=== PATIENT | male | born 1950 | race Caucasian/White ===

== ENCOUNTER → 2016-08-17 | Outpatient (CLI) | payer MEDICARE ==
[2016-08-17 10:45] LABS: Non-African American GFR(MDRD) >60 (>60 ml/min/1.73 sqM)
--- NOTE | 2016-08-17 13:11 | MR ---
MR angiogram of the neck without and with contrast, MR angiogram of the brain without contrast HISTORY: TIA, double vision and dizziness [id number] imaging through the [place], three-dimensional post processing performed Multiplanar multisequence and postcontrast images obtained through the neck following 20 cc MultiHanc e IV, three-dimensional reconstructions were performed Neck MRA: Vertebral arteries are patent and codominant. Transverse aorta is patent, left and right co mmon carotid arteries, innominate artery, subclavian arteries, internal and external carotid arteries are patent, there is no significant stenosis. MRA BRAIN: Anterior and posterior circulation are patent. Persistent origin of the left posteri or cerebral artery is noted. No evident aneurysm or vascular malformation. Incidental note made of so ft tissue within the left maxillary sinus, findings may represent mucus retention cyst. IMPRESSION: No significant abnormality to account for patient's symptoms.
== END ==
LOC: RADMRIMAIN 10:01
PROVIDERS: ATTEND Psychiatry & Neurology Neurology
DX: G45.9 Transient cerebral ischemic attack, unspecified (principal); R42 Dizziness and giddiness; R13.19 Other dysphagia; H53.9 Unspecified visual disturbance
CPT/HCPCS: 82565; 70544; 70549; A9577

== ENCOUNTER → 2016-08-18 | Outpatient (CLI) | payer MEDICARE ==
--- NOTE | 2016-08-18 21:59 | PN ---
DATE OF SERVICE: 08/18/2016 66-year-old gentleman who has been followed in the sleep center for treatment of obstructive sleep apnea/hypopnea syndrome. Patient continued to use his equipment every night. No snoring with the machine. [place] Sleepiness Scale is in normal 7. I checked patient's CPAP unit. Usage is 100% of the time more than 4 hours. Apnea-hypopnea index reading for last 7 days 1.9, for the last 30 days, average 2.5, which is normal range. CPAP pressure is 8 cm of water. Patient had episodes of atrial fibrillation last year, on more blood thinner therapy than before. MEDICATIONS: 1. Eliquis. 2. Simvastatin. 3. Sotalol. 4. Levothyroxine. 5. Claritin. During physical exam, the patient in no distress. VITAL SIGNS: BP 95/65, HR 62, RR 16. Height 5 feet 11 inches. Weight 202. BMI 28.1. Patient increased his weight 4 pounds since previous titration at the second part of 2014. HEENT: PERRLA, EOMI oropharynx low position of soft palate. PHYSICAL EXAMINATION: Neck: Supple. No JVD. Thyroid is not palpable. LUNGS: Clear to percussion and to auscultation. Good air exchange. No wheezing or rhonchi. HEART: Systolic murmur on aorta. ABDOMEN: Soft and nontender. Bowel sounds are present. No organomegaly appreciated. EXTREMITIES: No clubbing or cyanosis. EMERGENCY DEPARTMENT PHYSICIAN: Awake, alert, and oriented x3. Cranial nerves 2 to 7 intact. There is no fasciculation or atrophy noted. No focal deficits observed. IMPRESSION: 1. Obstructive sleep apnea/hypopnea syndrome on control with CPAP. Patient demonstrated 100% compliance with treatment benefiting from treatment. 2. History of some PLMS. 3. History of paroxysmal atrial fibrillation. 4. Bicuspid aortic valve. 5. Hypothyroidism. 6. Hyperlipidemia. 7. Status post tonsillectomy. PLAN: 1. Continue treatment with CPAP at the pressure 8 cm of water. 2. Losing weight. 3. Sleep hygiene with regular time in bed for at least 8 hours. 4. No driving if feeling any sleepiness. 5. Prescription for all necessary CPAP supplies, including tube, mask and filters. Thank you very much for allowing me to participate in the management of your patient. Sincerely, Toby Bowie MD, PhD, FAASM. Diplomat of [employer] Board of [employer] Medicine, Sleep Medicine Board by [employer] Board [employer] Specialities Chinese Board of Internal Medicine Typecasting Machine Operator of [facility] [place]
== END | disposition home or self-care (01) ==
LOC: SLEEP 16:04
PROVIDERS: ATTEND Internal Medicine
DX: G47.33 Obstructive sleep apnea (adult) (pediatric) (principal); Z87.898 Personal history of other specified conditions; I48.0 Paroxysmal atrial fibrillation; Q23.1 Congenital insufficiency of aortic valve; E03.9 Hypothyroidism, unspecified; E78.5 Hyperlipidemia, unspecified; Z98.890 Other specified postprocedural states; Z79.01 Long term (current) use of anticoagulants; Z79.899 Other long term (current) drug therapy

== ENCOUNTER → 2016-08-24 | Outpatient (CLI) | payer MEDICARE ==
--- NOTE | 2016-08-28 21:19 | ENG ---
DATE OF SERVICE: VIDEO ELECTRONYSTAGMOGRAPHIC REPORT VNG INDICATIONS: A 66-year-old male with dizziness starting 1-1/2 years ago, gradual onset, improving, but still occurring on average of twice a week lasting for a few seconds to a few minutes. Dizziness can be precipitated by turning the head left or right, bending over or and other movements of the head. VNG FINDINGS: SACCADES: Saccade shows intact peak velocities, accuracies, and latencies. GAZE TEST: Gaze with fixation shows no nystagmus in any of the directions of gaze including centrally with vision denied. SINUSOIDAL TRACKING: Tracking shows smooth tracking at faster and slower speeds. No break-ups. OKN TEST: Opticokinetic nystagmus shows no significant asymmetry at faster or slower speeds either direction. GIA-HALLPIKE TEST: Gia-Hallpike maneuvers are negative bilaterally. POSITION TEST: Static position testing with eyes opened and vision denied in 6 different positions shows no nystagmus. CALORIC TEST: Caloric testing shows 9% unilateral right caloric weakness, which is within normal limits. CONCLUSIONS: Unremarkable VNG study. MTDD
== END | disposition home or self-care (01) ==
LOC: NEUROMAIN 08:38
PROVIDERS: ATTEND Psychiatry & Neurology Neurology
DX: R42 Dizziness and giddiness (principal)
CPT/HCPCS: 92537; 92540

== ENCOUNTER → 2017-09-07 | Outpatient (CLI) | payer MEDICARE ==
--- NOTE | 2017-09-07 15:03 | SFUN ---
SLEEP CENTER FOLLOW UP NOTE DATE OF SERVICE: 09/07/2017 A 67-year-old gentleman who has been followed in the Sleep Center for treatment of obstructive sleep apnea-hypopnea syndrome. Patient continued to use his CPAP equipment every night. No snoring with CPAP. Patient is about the same weight as 1 year ago. [place] Sleepiness Scale today is 6. Patient had an episode of atrial fibrillation which has resolved by itself. I checked CPAP unit. Usage is 29 nights for more than 4 hours per month, average hours 8 hours and 12 minutes. No leak at 20%. Apnea-hypopnea index 3.1 for the last month. CURRENT MEDICATIONS: Eliquis, simvastatin, sotalol, levothyroxine, Claritin. PHYSICAL EXAM: Patient in no distress. BP 109/66, HR 60, RR 16, height 5, 11, weight 204, BMI 28.4, temp is 97.7, oxygen saturation at room air 97%. OROPHARYNX: Low position of soft palate. HEART: S1, S2, regular. Soft systolic murmur. ABDOMEN: Slightly obese. Neck Supple, no JVD. Thyroid is not palpable. LUNGS Clear to percussion and to auscultation. Good air exchange. No wheezing or rhonchi. EXTREMITIES No clubbing or cyanosis. CHIN STRAP SEWER Awake, alert, and oriented X3. Cranial nerves 2 to 7 intact. There is no fasciculation or atrophy. noted. No focal deficits observed. IMPRESSION: 1. Obstructive sleep apnea-hypopnea syndrome. Patient demonstrated practically 100% compliance with treatment, benefitting from treatment. 2. History of episodes of paroxysmal atrial fibrillation. 3. History of bicuspid aortic valve. 4. Hypothyroidism. 5. Hyperlipidemia. 6. Status post tonsillectomy. PLAN: 1. Continue treatment with CPAP every night for the whole night. 2. Watching weight. 3. Sleep hygiene with regular time bed for at least 8 hours. 4. No driving if feeling sleepiness. 5. Prescription for all necessary CPAP supplies, including mask, tube, filters on regular basis. Thank you very much for allowing me to participate in the management of your patient. Sincerely, Toby Bowie MD, PhD, FAASM Diplomat of [employer] Specialties [employer] Board of Internal Medicine Senior Publications Specialist of [facility] [place] MMODL / SALVADORN: [id number] /
== END | disposition home or self-care (01) ==
LOC: SLEEP 13:55
PROVIDERS: ATTEND Internal Medicine
DX: G47.33 Obstructive sleep apnea (adult) (pediatric) (principal); I48.0 Paroxysmal atrial fibrillation; E03.9 Hypothyroidism, unspecified; E78.5 Hyperlipidemia, unspecified; Z99.89 Dependence on other enabling machines and devices; Z90.89 Acquired absence of other organs; Z79.01 Long term (current) use of anticoagulants; Z79.899 Other long term (current) drug therapy

== ENCOUNTER → 2018-07-05 | Outpatient (CLI) | payer MEDICARE ==
--- NOTE | 2018-07-05 15:03 | SFUN ---
SLEEP CENTER FOLLOW UP NOTE DATE OF SERVICE: 07/05/2018: A 67-year-old gentleman who has been followed in the Sleep Center for treatment of obstructive sleep apnea-hypopnea syndrome. Patient continued to use his CPAP equipment every night for the whole night, but presently his machine started to stop working at night. I checked CPAP unit, CPAP pressure at 8 cm of water. His usage is 100% of the time more than 4 hours. Average usage 8.06 hours. Apnea-hypopnea index 2.6, which is in normal range. [place] Sleepiness Scale today is 8. MEDICATIONS: Eliquis, simvastatin, levothyroxine, Claritin, metoprolol. PHYSICAL EXAM: Patient in no distress. BP 107/73, HR 70, RR 18, height 5 foot 11 inches, weight 119.2 pounds. Body mass index 26.6, temperature 98.0, oxygen saturation at room air 97%. OROPHARYNX: Low position of soft palate. HEART: S1, S2 regular. Soft systolic murmur. Neck Supple, no JVD. Thyroid is not palpable. LUNGS Clear to percussion and to auscultation. Good air exchange. No wheezing or rhonchi. ABDOMEN Soft and nontender. Bowel sounds are present. No organomegaly appreciated. EXTREMITIES No clubbing or cyanosis. SOCIAL SERVICES COUNSELOR Awake, alert, and oriented X3. Cranial nerves 2 to 7 intact. There is no fasciculation or atrophy. noted. No focal deficits observed. IMPRESSION: 1. Obstructive sleep apnea-hypopnea syndrome, patient demonstrated 100% compliance with treatment, benefitting from treatment. Presently, has problem with his CPAP equipment, CPAP machine stopped working at night. 2. History of paroxysmal atrial fibrillation. 3. History of bicuspid aortic valve. 4. Hypothyroidism. 5. Hyperlipidemia. 6. Status post tonsillectomy. PLAN: 1. Prescriptions for new CPAP unit. 2. Sleep hygiene with regular time in bed for at least 8 hours. 3. Patient will continue to use CPAP equipment every night for the whole night. 4. No driving if feeling sleepiness. Thank you very much for allowing me to participate in the management of your patient. Sincerely, Toby Bowie MD, PhD, FAASM Diplomat of [place] [employer] Specialties [place] Board of Internal Medicine Rug Cleaning Supervisor of [facility] [place] MMODL / IJN: [id number] /
== END | disposition home or self-care (01) ==
LOC: SLEEP 13:58
PROVIDERS: ATTEND Internal Medicine
DX: G47.33 Obstructive sleep apnea (adult) (pediatric) (principal); I48.91 Unspecified atrial fibrillation; E03.9 Hypothyroidism, unspecified; E78.5 Hyperlipidemia, unspecified; Z99.89 Dependence on other enabling machines and devices; Z79.01 Long term (current) use of anticoagulants; Z79.899 Other long term (current) drug therapy; Z90.89 Acquired absence of other organs; Z86.79 Personal history of other diseases of the circulatory system

== ENCOUNTER → 2018-09-06 | Outpatient (CLI) | payer MEDICARE ==
--- NOTE | 2018-09-06 12:37 | SFUN ---
SLEEP CENTER FOLLOW UP NOTE DATE OF SERVICE: 09/06/2018 A 68-year-old gentleman who has been followed in the Sleep Center for treatment of obstructive sleep apnea-hypopnea syndrome. Recently he received new CPAP unit and successfully starting to use it. No problem with the machine, mask or humidification. Patient is using equipment every night for the whole night. [place] Sleepiness Scale is 8. I checked CPAP unit. CPAP pressure 8 cm of water. Usage is 30/30 nights more than 4 hours. Average usage 8.4 hours. Leak 40 L/minute which is acceptable. Apnea- hypopnea index only 0.8, which is normal. MEDICATIONS: Eliquis, simvastatin, Claritin, levothyroxine, metoprolol. PHYSICAL EXAM: Patient in no distress. BP 108-61, HR 54, RR 16, weight of 195, temp 98.0, O2 saturation at room air 97%. OROPHARYNX: Low position of soft palate. HEART: S1, S2, regular. Soft systolic murmur. Neck Supple, no JVD. Thyroid is not palpable. LUNGS Clear to percussion and to auscultation. Good air exchange. No wheezing or rhonchi. ABDOMEN Soft and nontender. Bowel sounds are present. No organomegaly appreciated. EXTREMITIES No clubbing or cyanosis. STICK PULLER Awake, alert, and oriented X3. Cranial nerves 2 to 7 intact. There is no fasciculation or atrophy. noted. No focal deficits observed. IMPRESSION: 1. Obstructive sleep apnea-hypopnea syndrome. Patient demonstrated 100% compliance with CPAP therapy or new CPAP unit, normal aspiration on CPAP, benefitting from treatment. 2. History of bicuspid aortic valve. S/p aortic valve replacement. 3. History of paroxysmal atrial fibrillation. 4. Hypothyroidism. 5. Hyperlipidemia. 6. Status post tonsillectomy. PLAN: 1. Patient will continue to use CPAP equipment every night for the whole night. 2. Will maintain all necessary prescriptions for CPAP supplies including mask, tube, filters. 3. Watching weight. 4. Precautions related to driving. No driving if feeling sleepiness. 5. Followup visit in 1 year or earlier if patient has any problems. Thank you very much for allowing me to participate in the management of your patient. Sincerely, Toby Bowie MD, PhD, FAASM Diplomat of [employer] Board of Medical Specialties Chinese Board of Internal Medicine Supervisor Mails of [facility] [place] MAREK / KAYLENE: [id number] / LEOBARDO
== END ==
LOC: SLEEP 11:25
PROVIDERS: ATTEND Internal Medicine
DX: G47.33 Obstructive sleep apnea (adult) (pediatric) (principal); E03.9 Hypothyroidism, unspecified; E78.5 Hyperlipidemia, unspecified; Z90.89 Acquired absence of other organs; Z99.89 Dependence on other enabling machines and devices; Z95.4 Presence of other heart-valve replacement; Z86.79 Personal history of other diseases of the circulatory system

== ENCOUNTER → 2021-06-02 | Outpatient (CLI) | payer MEDICARE ==
--- NOTE | 2021-06-02 20:56 | SFUN ---
SLEEP CENTER FOLLOW UP NOTE DATE OF SERVICE: 06/02/2021 70-year-old gentleman has been followed in Sleep Center for treatment of obstructive sleep apnea-hypopnea syndrome. Patient continued to use his CPAP equipment every night for the whole night. No snoring with the machine. I saw him last time about 2 years ago. [place] Sleepiness Scale today is 7. I checked the CPAP unit. Pressure is 8 cm of water. Usage is 29/30 nights for more than 4 hours, average 8 hours per night. Leak is 13 L/minute which is acceptable. Apnea-hypopnea index is 0.6 which is normal. Patient using the AirFit P10 medium size nasal pillow mask. MEDICATIONS: Eliquis 5 mg twice a day, simvastatin 20 mg once a day, metoprolol 25 mg twice a day, levothyroxine 50 mcg once a day. PHYSICAL EXAMINATION: GENERAL: Patient in no distress. BP 107/70, HR 66, RR 18, height 5 feet 11 inches and one quarter, weight 195.0 body mass index 26.9, temperature 97.1, oxygen saturation at room air 97%. Oropharynx: Low position of soft palate. NECK: Supple, no JVD. Thyroid is not palpable. LUNGS: Clear to percussion and to auscultation. Good air exchange. No wheezing or rhonchi. HEART: Irregular heartbeats. ABDOMEN: Soft and nontender. Bowel sounds are present. No organomegaly appreciated. EXTREMITIES: No clubbing or cyanosis. SPEECH AND LANGUAGE CLINICIAN: Awake, alert, and oriented X3. Cranial nerves 2 to 7 intact. There is no fasciculation or atrophy. noted. No focal deficits observed. IMPRESSION: 1. Obstructive sleep apnea-hypopnea syndrome. Patient demonstrated great compliance with treatment. Normal respiration on CPAP. 2. Recent blood in the urine, found to have a cyst in right kidney under evaluation. 3. History of bicuspid aortic valve status post aortic valve replacement. 4. Atrial fibrillation. 5. Hypothyroidism. 6. Status post fall. 7. Hypothyroidism. 8. Hyperlipidemia. 9. Status post tonsillectomy. PLAN: 1. Prescription for all necessary CPAP supplies including nasal pillow, mask, tube, filters. 2. Patient will continue to use PAP equipment every night for the whole night. 3. Sleep hygiene with regular time in bed for at least 7-1/2 to 8 hours. 4. Precautions related to driving. No driving if feeling sleepiness. 5. Watching weight. 6. Follow-up visit in 6 months or earlier if patient has any problems. Thank you very much for allowing me to participate in management of your patient. Sincerely, Toby Bowie MD, PhD, FAASM Diplomat of [place] [employer] Specialties Sleep Medicine Board of [place] Board of Internal Medicine Philosophy Faculty of [facility] [place] MMODL / SALVADORN: [phone] /
== END ==
LOC: SLEEP 11:31
PROVIDERS: ATTEND Internal Medicine
DX: G47.33 Obstructive sleep apnea (adult) (pediatric) (principal); N28.1 Cyst of kidney, acquired; I48.91 Unspecified atrial fibrillation; E03.9 Hypothyroidism, unspecified; E78.5 Hyperlipidemia, unspecified; Z90.89 Acquired absence of other organs; Z95.2 Presence of prosthetic heart valve; Z86.79 Personal history of other diseases of the circulatory system; Z91.81 History of falling; Z79.01 Long term (current) use of anticoagulants; Z79.890 Hormone replacement therapy; Z79.899 Other long term (current) drug therapy

== ENCOUNTER → 2022-02-09 | Outpatient (CLI) | payer MEDICARE ==
--- NOTE | 2022-02-09 14:27 | P.PN ---
Subjective DATE: 02/09/2022 FOLLOW UP VISIT. Patient with obstructive sleep apnea hypopnea syndrome return to sleep center for follow-up visit. Information from previous visit have been reviewed. Patient is using PAP equipment every night for the whole night, getting PAP supplies in time. The patient does not have significant problems with the mask, PAP unit and humidification. [place] sleepiness scale is 6. I checked PAP unit. Air filter is in good shape PAP unit pressure 8 cm H2O. Usage is 100 % for more then 4 hours, average 9 hours per night. Leak is 18 l/m, which is in acceptable range. Apnea Hypopnea Index is 1.1, which is normal. MEDICATIONS:1. Eliquis 5 mg twice a day 2. Simvastatin 20 mg once a day 3. Metoprolol 25 mg twice a day 4. Levothyroxine 50 g once a day During physical exam: GENERAL: A pleasant patient without any distress. VITAL SIGNS: BP 105/79, HR 72, RR 16, weight 189, temperature 98.6, oxygen saturation at room air 97 % . HEENT: PERRLA, EOMI.low position of soft palate. NECK: Supple. No JVD. LUNGS: Clear to percussion and to auscultation. Good air exchange. No wheezing or rhonchi. HEART: S1, S2 irrregular. ABDOMEN: Soft and nontender.[] EXTREMITIES: No clubbing or cyanosis. GROUP WORK PROGRAM DIRECTOR: Awake, alert, and oriented x3. No focal deficit. Impressions: 1. Obstructive sleep apnea-hypopnea syndrome. Patient demonstrated great compliance with treatment, benefiting from treatment. 2. Right kidney cyst. 3. Status post bladder resection for malignant tumor. 4. Hypothyroidism. 5. History of atrial fibrillation. 6. History of bicuspid aortic valve status post aortic valve replacement. 7. Back problems with pain. 8. Hyperlipidemia. 9. Status post tonsillectomy. Plan: 1. Continue using PAP equipment every night for the whole night. 2. To change air filter at least 1-2 times per month. 3. PAP unit should stay lower then position of the head. 4. Advised patient to remove all remaining water from humidifier canister daily and make it dry after each usage. Refill canister with fresh distilled water before each usage. 5. Sleep hygiene with regular time in bed for at least 8 hours. 6. Precautions related to driving. No driving if feel any sleepiness. 7. I will maintain prescription for PAP supplies including mask, tube, filters. 8. Follow up visit in 6 months or earlier if patient has any problems. 9. Watching weight. Thank you very much for allowing me to participate in the management of your patient. Toby Bowie MD, PhD, FAASM. Diplomat of [place] Board of Sleep Medicine, Sleep Medicine Board by [place] [employer] of Internal Medicine Propeller Tester of [facility] [place]
== END ==
LOC: SLEEP 13:40
PROVIDERS: ATTEND Internal Medicine
DX: G47.33 Obstructive sleep apnea (adult) (pediatric) (principal); N28.1 Cyst of kidney, acquired; C67.9 Malignant neoplasm of bladder, unspecified; E03.9 Hypothyroidism, unspecified; I48.91 Unspecified atrial fibrillation; Z87.890 Personal history of sex reassignment; M53.80 Other specified dorsopathies, site unspecified; E78.5 Hyperlipidemia, unspecified; Z90.09 Acquired absence of other part of head and neck; Z95.2 Presence of prosthetic heart valve; Z99.89 Dependence on other enabling machines and devices; Z79.01 Long term (current) use of anticoagulants; Z79.890 Hormone replacement therapy

== ENCOUNTER 2022-05-04 09:01 | Day surgery (SDC) | payer MEDICARE ==
[2022-05-03 10:41] VITALS: BMI 24.4
[~2022-05-04 09:01] MED LIST: LACTATED RINGERS 1,000 ML IV SCH
[2022-05-04 09:57] VITALS: TEMP 97.8
[2022-05-04] MEDS ORDERED: PROPOFOL 10 MG/ML 20 ML VIAL IV ONE (10:28)
[2022-05-04] MEDS ORDERED: LIDOCAINE 2% INJ 20 MG/ML (2 ML VIAL) ONE (10:28)
--- NOTE | 2022-05-04 10:48 | P.PCN ---
Date of Procedure: 05/04/22 Procedure(s) Performed: BRIEF HISTORY: Patient is a 71-year-old pleasant white male scheduled for an elective colonoscopy as a part of screening for colon cancer/positive cologuard. PROCEDURE PERFORMED: Colonoscopy with snare polypectomy. PREOPERATIVE DIAGNOSIS: Screening for colon cancer/positive cologuard. IV sedation per Anesthesia. PROCEDURE: After informed consent was obtained, the patient, was brought into the endoscopy unit. IV sedation was administered by Anesthesia under continuous monitoring. Digital rectal examination was normal. Initially the Olympus CF-160 flexible video colonoscope was then inserted in the rectum, gradually advanced into the cecum without any difficulty. Careful examination was performed as the scope was gradually being withdrawn. Ileocecal valve and the appendiceal orifice were visualized and appeared normal. Prep was excellent. Mucosa of the cecum, ascending colon, transverse colon, appeared normal in the descending colon there was a 5 mm polyp removed by snare polypectomy. Rest of the descending colon, sigmoid colon, and rectum appeared normal. Retroflexion was performed in the rectum and grade 2 internal hemorrhoids were seen. The patient tolerated the procedure well. IMPRESSION: 5 mm descending colon Polyp status post polypectomy Grade 2 internal hemorrhoids RECOMMENDATIONS: Findings of this examination were discussed with the patient as a family. She was advised to follow with the biopsy results. If the biopsy results adenoma he can have a repeat colonoscopy in 5 years..
[2022-05-04 11:36] VITALS: BP 110/72; PULSE 78; RESP 18
== END 2022-05-04 11:57 | disposition home or self-care (01) ==
LOC: ORWHC2ENDO 09:01
PROVIDERS: ATTEND Internal Medicine Gastroenterology
DX: R19.5 Other fecal abnormalities (principal); D12.4 Benign neoplasm of descending colon; K64.1 Second degree hemorrhoids
CPT/HCPCS: 88305; 45385; J2704; J2001

== ENCOUNTER → 2023-02-02 | Outpatient (CLI) | payer MEDICARE ==
--- NOTE | 2023-02-02 14:16 | P.PN ---
Subjective DATE: 02/02/2023 FOLLOW UP VISIT. Patient with obstructive sleep apnea hypopnea syndrome return to sleep center for follow-up visit. Information from previous visit have been reviewed. Patient is using PAP equipment every night for the whole night, getting PAP supplies in time. The patient does not have significant problems with the mask, PAP unit and humidification. [place] sleepiness scale is 5, which is normal. I checked information from PAP unit. PAP unit pressure 8 cm H2O. Usage is 100 % for more then 4 hours, average 8.2 hours per night. Leak is 16 l/m, which is in acceptable range. Apnea Hypopnea Index is 0.3, which is normal. MEDICATIONS:1. Eliquis 5 mg twice a day 2. Simvastatin 20 mg once a day 3. Metoprolol 25 mg twice a day 4. Levothyroxine 50 g once a day During physical exam: GENERAL: A pleasant patient without any distress. VITAL SIGNS: BP 105/70, HR 65, RR 16, weight 194.8, temperature 97.0, oxygen saturation at room air 97 % . HEENT: PERRLA, EOMI.low position of soft palate, Mallapati 3 . NECK: Supple. No JVD. LUNGS: Clear to percussion and to auscultation. Good air exchange. No wheezing or rhonchi. HEART: S1, S2 regular. Slight systolic mumur on aorta. ABDOMEN: Soft and nontender.[] EXTREMITIES: No clubbing or cyanosis. TWISTER HAND: Awake, alert, and oriented x3. No focal deficit. Impressions: 1. Obstructive sleep apnea-hypopnea syndrome. Patient demonstrated great compliance with treatment, benefiting from treatment. 2. Atrial fibrillation. 3. Status post aortic valve replacement for bicuspid aortic valve. 4. Hypothyroidism. 5. Status post bladder resection for malignant tumor. 6. Status post tonsillectomy. 7. Back problems. 8. History of right kidney cyst. 9. Hyperlipidemia. Plan: 1. Continue using PAP equipment every night for the whole night. 2. To change air filter at least 1-2 times per month. 3. PAP unit should stay lower then position of the head. 4. Advised patient to remove all remaining water from humidifier canister daily and make it dry after each usage. Refill canister with fresh distilled water before each usage. 5. Sleep hygiene with regular time in bed for at least 8 hours. 6. Precautions related to driving. No driving if feel any sleepiness. 7. I will maintain prescription for PAP supplies including mask, tube, filters. 8. Follow up visit in 6 months or earlier if patient has any problems. 9. Watching weight. Thank you very much for allowing me to participate in the management of your patient. Toby Bowie MD, PhD, FAASM. Diplomat of [place] Board of Sleep Medicine, Sleep Medicine Board by [employer] Board of Internal Medicine Welcome Wagon Host/Hostess of [facility] [place]
== END ==
LOC: 3 N SLEEP 13:13
PROVIDERS: ATTEND Internal Medicine
DX: G47.33 Obstructive sleep apnea (adult) (pediatric) (principal); I48.91 Unspecified atrial fibrillation; E03.9 Hypothyroidism, unspecified; E78.5 Hyperlipidemia, unspecified; M54.9 Dorsalgia, unspecified; Z79.890 Hormone replacement therapy; Z79.01 Long term (current) use of anticoagulants; Z85.51 Personal history of malignant neoplasm of bladder; Z95.2 Presence of prosthetic heart valve; Z98.890 Other specified postprocedural states; Z99.89 Dependence on other enabling machines and devices
CPT/HCPCS: 99212

== ENCOUNTER → 2023-09-14 | Outpatient (CLI) | payer MEDICARE ==
--- NOTE | 2023-09-14 13:51 | P.PN ---
Subjective DATE: 09/14/2023 FOLLOW UP VISIT. Patient with obstructive sleep apnea hypopnea syndrome return to sleep center for follow-up visit. Information from previous visit have been reviewed. Patient is using PAP equipment every night for the whole night, getting PAP supplies in time. The patient does not have significant problems with the mask, PAP unit and humidification. [place] sleepiness scale is 6, which is normal. I checked information from PAP unit. PAP unit pressure 8 cm H2O. Usage is 100% for more then 4 hours, average 8.2 hours per night. Leak is 13 l/m, which is in acceptable range. Apnea Hypopnea Index is 0.9, which is normal. MEDICATIONS:1. Eliquis 5 mg twice a day 2. Simvastatin 20 mg once a day 3. Metoprolol 25 mg twice a day a day 4. Levothyroxine 50 mcg once a day 5. Fluticasone spray During physical exam: GENERAL: A pleasant patient without any distress. VITAL SIGNS: BP 103/66, HR 66, RR 16, weight 197.6 pounds, BMI 28.6, temperature 98.2, oxygen saturation room air 97%. HEENT: PERRLA, EOMI.low position of soft palate, Mallapati 3. NECK: Supple. No JVD. LUNGS: Clear to percussion and to auscultation. Good air exchange. No wheezing or rhonchi. HEART: S1, S2 regular. ABDOMEN: Soft and nontender.[] EXTREMITIES: No clubbing or cyanosis. FLYING SQUAD SALESPERSON: Awake, alert, and oriented x3. No focal deficit. Impressions: 1. Obstructive sleep apnea-hypopnea syndrome. Patient demonstrated great compliance with treatment, benefiting from treatment. 2. 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 3. History of atrial fibrillation. 4. Status post aortic valve replacement for bicuspid aortic valve. 5. Hypothyroidism. 6. Status post bladder resection for malignant tumor. 7. Status post tonsillectomy. 8. Back problems. 9. History of right kidney cyst. 10. Hyperlipidemia. Plan: 1. Continue using PAP equipment every night for the whole night. 2. To change air filter at least 1-2 times per month. 3. PAP unit should stay lower then position of the head. 4. Advised patient to remove all remaining water from humidifier canister daily and make it dry after each usage. Refill canister with fresh distilled water before each usage. 5. Sleep hygiene with regular time in bed for at least 8 hours. 6. Precautions related to driving. No driving if feel any sleepiness. 7. I will maintain prescription for PAP supplies including mask, tube, filters. 8. Watching weight. 9. Follow up visit in 6 months or earlier if patient has any problems. Thank you very much for allowing me to participate in the management of your patient. Toby Bowie MD, PhD, FAASM. Diplomat of [employer], Sleep Medicine Board by [employer] Operations Vocational Instructor of [facility] [place] Objective - Vital Signs Vital signs: Vital Signs Temp 98.2 F 09/14/23 13:38 Pulse 66 09/14/23 13:38 Resp 16 09/14/23 13:38 BP 103/66 09/14/23 13:38 Pulse Ox 97 09/14/23 13:38 FiO2 Intake & Output 09/13/23 09/14/23 09/14/23 18:59 06:59 18:59 Weight 89.358 kg
[2023-09-14 14:23] VITALS: BP 103/66; PULSE 66; RESP 16; TEMP 98.2
== END ==
LOC: 3 N SLEEP 13:15
PROVIDERS: ATTEND Internal Medicine
DX: G47.33 Obstructive sleep apnea (adult) (pediatric) (principal); I48.91 Unspecified atrial fibrillation; E03.9 Hypothyroidism, unspecified; E78.5 Hyperlipidemia, unspecified; M51.9 Unspecified thoracic, thoracolumbar and lumbosacral intervertebral disc disorder; M54.9 Dorsalgia, unspecified; Z79.01 Long term (current) use of anticoagulants; Z79.890 Hormone replacement therapy; Z79.899 Other long term (current) drug therapy; Z85.51 Personal history of malignant neoplasm of bladder; Z90.89 Acquired absence of other organs; Z87.448 Personal history of other diseases of urinary system; Z98.890 Other specified postprocedural states; Z95.2 Presence of prosthetic heart valve; Z86.19 Personal history of other infectious and parasitic diseases; Z99.89 Dependence on other enabling machines and devices
CPT/HCPCS: 99212

== ENCOUNTER → 2024-05-02 | Outpatient (CLI) | payer MEDICARE ==
[2024-05-02 13:17] VITALS: BP 110/74; PULSE 74; RESP 16; TEMP 98
--- NOTE | 2024-05-02 13:41 | P.PROGSL ---
Subjective DATE: 05/02/2024 FOLLOW UP VISIT. Patient with obstructive sleep apnea hypopnea syndrome return to sleep center for follow-up visit. Information from previous visit have been reviewed. Patient is using PAP equipment every night for the whole night, getting PAP supplies in time. The patient does not have significant problems with the mask, PAP unit and humidification. [place] sleepiness scale is 7, which is in normal range. I checked information from PAP unit. PAP unit pressure 8 cm H2O. Usage is 100% for more then 4 hours, average 8.2 hours per night. Leak is 11 l/m, which is in acceptable range. Apnea Hypopnea Index is 0.5, which is normal. MEDICATIONS have been reviewed, please see below. During physical exam: GENERAL: A pleasant patient without any distress. VITAL SIGNS: Please see below, weight is 193 lbs. HEENT: PERRLA, EOMI.low position of soft palate, Mallapati 3. NECK: Supple. No JVD. LUNGS: Clear to percussion and to auscultation. HEART: S1, S2 irregularly irregular. ABDOMEN: Soft and nontender.[] EXTREMITIES: No clubbing or cyanosis. CERTIFIED SKI PATROLLER: Awake, alert, and oriented x3. No focal deficit. Impressions: 1. Obstructive sleep apnea-hypopnea syndrome. Patient demonstrated great compliance with treatment, benefiting from treatment. 2. Atrial fibrillation. 3. Status post bicuspid aortic valve replacement. 4. Hypothyroidism. 5. Status post bladder resection for malignant tumor. 6. Back problems. 7. Hyperlipidemia. 8. History of right kidney cyst. 9. Status post tonsillectomy. Plan: 1. Continue using PAP equipment every night for the whole night. 2. Sleep hygiene with regular time in bed for at least 7.5-8 hours 3. PAP unit should stay lower then position of the head. 4. Advised patient to remove all remaining water from humidifier canister daily and make it dry after each usage. Refill canister with fresh distilled water before each usage. 5. Watching weight. 6. Precautions related to driving. No driving if feel any sleepiness. 7. I will maintain prescription for PAP supplies including mask, tube, filters. 8. Follow up visit in 8 months or earlier if patient has any problems. Thank you very much for allowing me to participate in the management of your patient. Toby Bowie MD, PhD, FAASM. Diplomat of [employer], Sleep Medicine Board by [employer] Real Estate Agent/Broker of [facility] [place] Objective - Vital Signs Vital Signs: Vital Signs Temp 98 F 05/02/24 13:16 Pulse 74 05/02/24 13:16 Resp 16 05/02/24 13:16 BP 110/74 05/02/24 13:16 Pulse Ox 98 05/02/24 13:16 FiO2 Intake & Output 05/01/24 05/02/24 05/02/24 18:59 06:59 18:59 Weight 87.543 kg Home Medications: Home Medications Medication Instructions Recorded Confirmed Type Apixaban [Eliquis] 5 mg PO BID 05/03/22 05/02/24 History Fluticasone Nasal [place] [Flonase 1 spray EA NOSTRIL DAILY 05/03/22 05/02/24 History Nasal [place]] Levothyroxine Sodium [Synthroid] 50 mcg PO DAILY 05/03/22 05/02/24 History Metoprolol Tartrate [Lopressor] 25 mg PO BID 05/03/22 05/02/24 History Simvastatin [Zocor] 20 mg PO HS 05/03/22 05/02/24 History Loratadine [Claritin] 10 mg PO DAILY 05/02/24 05/02/24 History
== END ==
LOC: 3 N SLEEP 13:05
PROVIDERS: ATTEND Internal Medicine
DX: G47.33 Obstructive sleep apnea (adult) (pediatric) (principal); I48.91 Unspecified atrial fibrillation; E03.9 Hypothyroidism, unspecified; M53.9 Dorsopathy, unspecified; Z98.890 Other specified postprocedural states; Z90.89 Acquired absence of other organs; Z99.89 Dependence on other enabling machines and devices; Z85.51 Personal history of malignant neoplasm of bladder; Z79.01 Long term (current) use of anticoagulants; Z79.890 Hormone replacement therapy
CPT/HCPCS: 99212